=== PATIENT | female | born 1965 | race Caucasian/White ===

== ENCOUNTER → 2017-09-12 | Outpatient (CLI) | payer MEDICAID ==
--- NOTE | 2017-09-13 14:15 | MM ---
Reason for exam: screening (asymptomatic). Last mammogram was performed 1 year and 6 months ago. History: Patient is postmenopausal. Family history of premenopausal breast cancer in mother at age 36. Physical Findings: A clinical breast exam by your physician is recommended on an annual basis and results should be correlated with mammographic findings. MG Screening Mammo w CAD Bilateral CC and MLO view(s) were taken. Prior study comparison: March 08, 2016, right breast MG work up mamm w CAD RT. March 03, 2016, bilateral MG screening mammo w CAD. There are scattered fibroglandular densities. Finding: There is a high density, indistinct irregular mass in the inner quadrant, anterior position of the left breast consistent with possible summation density seen on CC view, 9cm from the nipple. New finding since March 08, 2016 and March 03, 2016. ASSESSMENT: Incomplete: need additional imaging evaluation, BI-RAD 0 RECOMMENDATION: Special view mammogram of the left breast. If lesion persists on supplemental views, image directed ultrasound is recommended. [facility] will attempt to contact patient to return for supplemental views and ultrasound if indicated.
== END | disposition home or self-care (01) ==
LOC: RADMAMWWP 10:06
PROVIDERS: ATTEND Family Medicine
DX: Z12.31 Encounter for screening mammogram for malignant neoplasm of breast (principal)

== ENCOUNTER → 2017-09-25 | Outpatient (CLI) | payer MEDICAID ==
--- NOTE | 2017-09-25 10:19 | MM ---
Reason for exam: additional evaluation requested from abnormal screening. Last mammogram was performed less than 1 month ago. History: Patient is postmenopausal. Family history of premenopausal breast cancer in mother at age 36. Physical Findings: Nurse did not find any significant physical abnormalities on exam. MG Work Up Mamm w CAD LT Spot compression CC view(s) were taken of the left breast. Prior study comparison: September 12, 2017, bilateral MG screening mammo w CAD. March 08, 2016, right breast MG work up mamm w CAD RT. There is no discrete abnormality including area of concern. These results were verbally communicated with the patient and result sheet given to the patient on 09/25/17. ASSESSMENT: Negative, BI-RAD 1 RECOMMENDATION: Return to routine screening mammogram schedule for both breasts.
== END | disposition home or self-care (01) ==
LOC: RADMAMWWP 09:34
PROVIDERS: ATTEND Family Medicine
DX: R92.8 Other abnormal and inconclusive findings on diagnostic imaging of breast (principal)

== ENCOUNTER → 2017-12-14 | Outpatient (CLI) | payer BC ==
[2017-12-14 16:58] LABS: Vitamin D 25 Hydroxy 17.6 ng/mL (30.0-100.0)
--- NOTE | 2017-12-16 22:00 | MR ---
EXAMINATION TYPE: MR brain/cspine wo/w DATE OF EXAM: 12/14/2017 COMPARISON: NONE HISTORY: 52-year-old female Spondylosis, left side weakness, stiffness and pain TECHNIQUE: Multiplanar, multisequence images of the brain and brainstem were acquired before and aft er administration of 12 mL IV Gadavist. Diffusion weighted imaging is performed. Subsequent multiplanar, multisequence images of the cervical spine without and with contrast. FINDINGS: BRAIN: No evidence for acute infarction, hemorrhage, mass, mass effect, midline shift, herniation, effacemen t of basal cisterns, or extra-axial fluid collection. The ventricles and sulci are age-appropriate. Major intracranial flow voids are intact. T2/FLAIR weighted sequences show no significant white matter signal abnormality. Midline structures demonstrate normal morphology. The craniocervical junction is normal. Post contrast images demonstrate no evidence of pathologic enhancement. Dural venous sinuses are pat ent. Mild mucosal thickening left ethmoid air cells and bilateral frontal sinuses. Globes are intact. CERVICAL SPINE: No craniocervical junction abnormality, predental space widening, or prevertebral soft tissue swellin g. Preserved alignment of the cervical spine. Mild heterogeneous marrow signal without suspicious bone marrow replacement. Variable mild to moderate intervertebral disc desiccation. Disc osteophyte complexes are present at m ultiple levels especially from C3 through C7 levels. Corresponding ligamentum flavum thickening in scattered facet and uncovertebral joint degenerative ch viktoriya. At C2-C3, small posterior disc protrusion with facet degenerative change. No significant spinal canal or neuroforaminal stenosis. At C3-C4, there is broad-based lobulated disc osteophyte complex, right greater than left with contig uous uncovertebral joint degenerative change. Bilateral facet arthropathy is present. There is an enh ancing right paracentral annular fissure. Changes result in moderate right and mild left neuroforamin al stenosis. There is mild overall spinal canal stenosis with prominent abutment and flattening of th e ventral cord. At C4-C5, broad-based disc osteophyte complex with contiguous uncovertebral joint arthropathy of the right. Bilateral facet degenerative changes present. Changes of moderate right and mild left neuroforaminal stenosis and with mild overall spinal canal na rrowing. There is abutment and slight flattening of the ventral cord. At C5-C6, there is broad-based disc osteophyte complex with contiguous uncovertebral joint and facet arthropathy. Ligamentum flavum thickening is present as well. Changes result in moderate to severe le ft greater than right neuroforaminal stenosis and mild spinal canal stenosis with abutment and flatte niko of the ventral cord. At C6/C7, broad-based disc osteophyte complex with facet and uncovertebral joint degenerative change as well as ligamentum flavum thickening. Changes resulting in [id number] left and mild right ne uroforaminal stenosis and mild overall spinal canal stenosis. No significant cord flattening. At C7-T1, there is facet degenerative change without canal or foraminal stenosis. No prevertebral or paravertebral soft tissue abnormality seen. No T2-weighted cord signal abnormality identified. No abnormal enhancement within the spinal canal. COMBINED IMPRESSION: BRAIN: 1. No specific intracranial abnormality seen.. CERVICAL SPINE: 1. Nckj-ey-gkhrikbn multilevel degenerative disc disease characterized by disc desiccation and disc o steophyte complex formation. 2. Additional scattered facet and uncovertebral joint arthropathy as well as ligamentum flavum thicke niko. 3. Prominent right paracentral disc osteophyte complex at C3-C4 demonstrates an enhancing annular fis sure. There is abutment and flattening of the ventral cord with mild spinal canal stenosis. Moderate right neural foraminal stenosis here. 4. Additional mild spinal canal stenoses at C4 through C7 levels. Variable mild to moderate neurofora waldemar stenoses as outlined above, moderate to severe left greater than right at C5-C6.
== END | disposition home or self-care (01) ==
LOC: RADMRIMAIN 11:26
PROVIDERS: ATTEND Psychiatry & Neurology Neurology
DX: M48.02 Spinal stenosis, cervical region (principal); M99.71 Connective tissue and disc stenosis of intervertebral foramina of cervical region; M50.30 Other cervical disc degeneration, unspecified cervical region; M46.92 Unspecified inflammatory spondylopathy, cervical region; M24.28 Disorder of ligament, vertebrae; M79.7 Fibromyalgia; R53.1 Weakness; R20.2 Paresthesia of skin
CPT/HCPCS: 82607; 82310; 82306; 70553; 72156; 36415; A9581

== ENCOUNTER → 2018-07-26 | Outpatient (CLI) | payer BC ==
--- NOTE | 2018-07-26 11:27 | FL ---
Modified barium swallow. HISTORY: Dysphagia. Modified barium swallow was performed with the department of speech pathology. The patient was prese nted with various consistencies of barium. There is no evidence for aspiration or penetration. Full report is to follow from the department of speech pathology. Impression: Normal study.
== END ==
LOC: RADFLMAIN 10:36
PROVIDERS: ATTEND Otolaryngology
DX: R13.10 Dysphagia, unspecified (principal)
CPT/HCPCS: 74230

== ENCOUNTER → 2019-03-27 | Outpatient (CLI) | payer MEDICARE ==
--- NOTE | 2019-03-28 11:55 | MM ---
Reason for exam: screening (asymptomatic). Last mammogram was performed 1 year and 6 months ago. History: Patient is postmenopausal. Family history of premenopausal breast cancer in mother at age 36. Physical Findings: A clinical breast exam by your physician is recommended on an annual basis and results should be correlated with mammographic findings. MG 3D Screening Mammo W/Cad Bilateral CC and MLO view(s) were taken. XCCL view(s) were taken of the left breast. Prior study comparison: September 25, 2017, left breast MG work up mamm w CAD LT. September 12, 2017, bilateral MG screening mammo w CAD. The breast tissue is heterogeneously dense. This may lower the sensitivity of mammography. There is no discrete abnormality. ASSESSMENT: Negative, BI-RAD 1 RECOMMENDATION: Routine screening mammogram of both breasts in 1 year.
== END | disposition home or self-care (01) ==
LOC: RADMAMWWP 14:03
PROVIDERS: ATTEND Family Medicine
DX: Z12.31 Encounter for screening mammogram for malignant neoplasm of breast (principal)
CPT/HCPCS: 77063; 77067

== ENCOUNTER → 2019-12-03 | Outpatient (CLI) | payer MEDICARE ==
--- NOTE | 2019-12-03 09:58 | XR ---
EXAMINATION TYPE: XR foot complete LT DATE OF EXAM: 12/03/2019 CLINICAL HISTORY: pain TECHNIQUE: Frontal, lateral and oblique images of the left foot are obtained. COMPARISON: None. FINDINGS: Small corner fracture at the medial base of the proximal phalanx left great toe with intra- articular extension. No significant displacement noted. No additional fracture seen. The joint spaces appear within normal limits. The overlying soft tissue appears unremarkable. IMPRESSION: Small corner fracture at the medial base of the proximal phalanx left great toe with intra-articular extension. No significant displacement noted. ICD 10 closed FRACTURE, INITIAL EVALUATION
== END | disposition home or self-care (01) ==
LOC: RADXRMAIN 09:36
PROVIDERS: ATTEND Family Medicine
DX: S92.412A Displaced fracture of proximal phalanx of left great toe, initial encounter for closed fracture (principal)

== ENCOUNTER → 2020-01-07 | Outpatient (CLI) | payer MEDICARE ==
--- NOTE | 2020-01-08 10:09 | BD ---
EXAMINATION TYPE: Axial Bone Density DATE OF EXAM: 01/07/2020 COMPARISON: 03/07/2011 CLINICAL HISTORY: Z 13.820 Height: 65.7 IN Weight: 282 LBS FRAX RISK QUESTIONS: Family History (Parent hip fracture): YES MOTHER History of Fracture in Adulthood: TOE FX AGE 56 Secondary Osteoporosis: 3. Menopause before 45: YES TOTAL HYST AGE 35 RISK FACTORS HISTORY OF: Family History of Osteoporosis: YES MOTHER AND (M) GRANDMOTHER Active: LIMITED Postmenopausal woman: TOTAL HYST AGE 35 MEDICATIONS: Thyroid Medications: YES Which medication: Levothyroxine How Lon+ YEARS Additional Medications: VIT D, LEVOTHYROXINE, PAIN MEDS, MUSCLE RELAXER, EXAM MEASUREMENTS: Bone mineral densitometry was performed using the [employer] System. Bone mineral density as measured about the Lumbar spine is: ----- L1-L4(G/cm2): 1.032 T Score Values are as follows: ----- L2: -1.2 ----- L3: -1.7 ----- L4: -1.1 ----- L1-L4: -1.2 Bone mineral density has: Decreased -0.6% since study of: 03/07/2011 Bone mineral density about the R hip (g/cm2): 0.898 Bone mineral density about the L hip (g/cm2): 0.910 T Score values are as follows: -----R Neck: -1.0 -----L Neck: -0.9 -----R Total: -0.2 -----L Total: -0.5 Bone mineral density has: Decreased -6.1% since study of: 03/07/2011 IMPRESSION: Osteopenia (T Score between -2.5 and -1). There is slightly increased risk of fracture and the patient may be considered for treatment. Re-Screen 2-5 years. NOTE: T-SCORE=SD OF THE YOUNG ADULT MEAN.
== END | disposition home or self-care (01) ==
LOC: RADBDWWP 15:56
PROVIDERS: ATTEND Family Medicine
DX: Z13.820 Encounter for screening for osteoporosis (principal); M85.80 Other specified disorders of bone density and structure, unspecified site
CPT/HCPCS: 77080

== ENCOUNTER → 2021-05-18 | Outpatient (CLI) | payer MEDICARE ==
[2021-05-18 16:13] LABS: HCT 41.6 % (34.0-46.0); HGB 12.9 gm/dL (11.4-16.0); Hypochromasia Slight; MCH 30.6 pg (25.0-35.0); Macrocytosis Slight; Mean Platelet Volume 7.5; Platelet Count 355 k/uL (150-450); RBC 4.21 m/uL (3.80-5.40); RDW 15.7 % (11.5-15.5); WBC 8.3 k/uL (3.8-10.6)
[2021-05-18 16:16] LABS: Appearance,Urine Cloudy (Clear); Bilirubin,Urine Negative (Negative); Blood,Urine Large (Negative); Color,Urine Yellow; Glucose,Urine (UA) Negative (Negative); Ketones,Urine Negative (Negative); Leukocyte Esterase,Urine Trace (Negative); Mucus,Urine Rare /hpf; Nitrite,Urine Negative (Negative); Protein,Urine 1+ (Negative); RBC,Urine >182 /hpf (0-5); Specific Gravity,Urine 1.027 (1.001-1.035); Squamous Epithelial Cell,Urine 2 /hpf (0-4); Urobilinogen,Urine <2.0 mg/dL (<2.0); WBC,Urine 2 /hpf (0-5)
[2021-05-18 16:22] LABS: INR 0.9 (<1.2); Partial Thromboplastin Time 25.2 sec (22.0-30.0); Prothrombin Time 10.2 sec (9.0-12.0)
[2021-05-18 16:24] LABS: Albumin 4.4 g/dL (3.5-5.0); Calcium 9.6 mg/dL (8.4-10.2); Potassium 4.1 mmol/L (3.5-5.1); Total Bilirubin 0.2 mg/dL (0.2-1.3); Total Protein 6.9 g/dL (6.3-8.2)
== END | disposition home or self-care (01) ==
LOC: LABPAT 13:23
PROVIDERS: ATTEND Orthopaedic Surgery
DX: Z01.812 Encounter for preprocedural laboratory examination (principal)
CPT/HCPCS: 80053; 81001; 85027; 85610; 85730; 87070

== ENCOUNTER → 2021-05-23 | Outpatient (CLI) | payer MEDICARE ==
--- NOTE | 2021-05-26 15:25 | MM ---
Reason for exam: screening (asymptomatic). Last mammogram was performed 2 years and 2 months ago. History: Patient is postmenopausal. Family history of premenopausal breast cancer in mother at age 36. Physical Findings: A clinical breast exam by your physician is recommended on an annual basis and results should be correlated with mammographic findings. MG 3D Screening Mammo W/Cad Bilateral CC and MLO view(s) were taken. Prior study comparison: March 27, 2019, bilateral MG 3d screening mammo w/cad. September 25, 2017, left breast MG work up mamm w CAD LT. There are scattered fibroglandular densities. There is no discrete abnormality. No significant changes when compared with prior studies. ASSESSMENT: Benign, BI-RAD 2 RECOMMENDATION: Routine screening mammogram of both breasts in 1 year.
== END | disposition home or self-care (01) ==
LOC: RADMAMWWP 15:39
PROVIDERS: ATTEND Family Medicine
DX: Z12.31 Encounter for screening mammogram for malignant neoplasm of breast (principal); Z78.0 Asymptomatic menopausal state; Z80.3 Family history of malignant neoplasm of breast
CPT/HCPCS: 77063; 77067

== ENCOUNTER 2021-06-06 12:14 | Day surgery (SDC) | payer MEDICARE ==
[2021-05-31 16:06] VITALS: BMI 46.6
[~2021-06-06 12:14] MED LIST: ACETAMINOPHEN TAB 500 MG TAB PO PRN; GABAPENTIN 300 MG CAP PO PRN; LIDOCAINE 1% (10MG/ML) FOR IV START INTRADERMA PRN; MELOXICAM 7.5 MG TAB PO PRN; MIDAZOLAM 2 MG/2 ML VIAL IV PRN; ROPIVACAINE/EPI/CLONIDINE/KET 50 ML SYRINGE MISCELLANE PRN; TRANEXAMIC ACID 1,000 MG in SODIUM CHLORIDE 0.9% 100 ML IVPB PRN; ceFAZolin 3 GM in SODIUM CHLORIDE 0.9% 100 ML IVPB PRN
[2021-06-06] MEDS: LACTATED RINGERS 1,000 ML IV SCH (12:53)
[2021-06-06] MEDS: DEXAMETHASONE SOD PHOSPHATE 4 MG/ML 1 ML VIAL IV ONE ×2 (12:54→20:53)
[2021-06-06] MEDS: ONDANSETRON 4 MG/2 ML VIAL IVP ONE ×2 (12:55→20:53)
[2021-06-06] MEDS ORDERED: SCOPOLAMINE 1.5MG/72HR PATCH TRANSDERM ONE (12:56)
[2021-06-06] MEDS ORDERED: ROPIVACAINE 0.2%-NS ON-Q PUMP 1,090 MG, EMPTY PAIN BALL 1 EACH MISCELLANE PRN (13:57)
--- NOTE | 2021-06-06 14:00 | P.ANPRN ---
Procedure Note - Anesthesia - Nerve Block Performed Left Adductor Canal Infusion Time Out Performed: Yes (1302) Date of Procedure: 06/06/21 Procedure Start Time: 13:02 Procedure Stop Time: 13:13 Location of Patient: PreOp Indication: Acute Post-Operative Pain, Dx/Pain Location (Left Knee), Requested by Surgeon Specifically requested for management of pain by DrDominga: Vargas Padilla Sedation Type: Sedate with meaningful contact maintained Preparation: Sterile Prep, Sterile Dressing Position: Supine Catheter: Indwelling Needle Types: Pajunk Needle Gauge: 18 Ultrasound used to visualize needle placement: Yes Ultrasound used to observe medication spread: Yes Injectate: 0.5% Ropivacaine (see comment for volume) (20 cc) Blood Aspirated: No Pain Paresthesia on Injection Noted: No Resistance on Injection: Normal Image Stored and Saved: Yes Events: Uneventful and Well Tolerated Left iPack Single Time Out Performed: Yes Date of Procedure: 06/06/21 Location of Patient: PreOp Indication: Acute Post-Operative Pain, Dx/Pain Location (Left Knee) Specifically requested for management of pain by DrDominga: Jose Devlin Sedation Type: Sedate with meaningful contact maintained Preparation: Sterile Prep Position: Right Lateral Catheter: None Needle Types: Pajunk Needle Gauge: 21 Ultrasound used to visualize needle placement: Yes Ultrasound used to observe medication spread: Yes Injectate: 0.5% Ropivacaine (see comment for volume) (20 cc) Blood Aspirated: No Pain Paresthesia on Injection Noted: No Resistance on Injection: Normal Image Stored and Saved: Yes Events: Uneventful and Well Tolerated
[2021-06-06] MEDS ORDERED: diphenhydrAMINE 50 MG/ML 1 ML VIAL ONE (14:36)
[2021-06-06] MEDS ORDERED: MIDAZOLAM 2 MG/2 ML VIAL ONE (14:36)
[2021-06-06] MEDS ORDERED: ROPIVACAINE 5 MG/ML 30 ML VIAL ONE (14:36)
[2021-06-06] MEDS ORDERED: fentaNYL (PF) 50 MCG/ML 2 ML AMP ONE (14:36)
[2021-06-06] MEDS ORDERED: ceFAZolin 1,000 MG in SODIUM CHLORIDE 0.9% 1,000 ML IRRIGATION ONE (14:41)
[2021-06-06] MEDS ORDERED: HYDROmorphone 0.2 MG/1 ML SYRINGE IVP PRN (14:48)
[2021-06-06] MEDS ORDERED: HYDROmorphone 0.5 MG/0.5 ML SYRINGE IVP PRN (14:48)
[2021-06-06] MEDS ORDERED: hydrOXYzine pamoate 25 MG CAP PO PRN (14:48)
[2021-06-06] MEDS ORDERED: MAGNESIUM HYDROXIDE 2,400 MG/10 ML CUP PO PRN (14:48)
[2021-06-06] MEDS ORDERED: HYDROmorphone 1 MG/ML 1 ML SYRINGE IVP PRN (14:48)
[2021-06-06] MEDS ORDERED: NALOXONE 0.4 MG/ML 1 ML VIAL IV PRN (14:48)
[2021-06-06] MEDS ORDERED: NA PHOS,M-B/NA PHOS,DI-BA 133 ML ENEMA RECTAL PRN (14:48)
[2021-06-06] MEDS ORDERED: ONDANSETRON 4 MG/2 ML VIAL IVP PRN (14:48)
[2021-06-06] MEDS ORDERED: bisacodyL 10 MG SUPP RECTAL PRN (14:48)
[2021-06-06] MEDS ORDERED: HYDROcodone/APAP 7.5-325MG 1 EACH TAB PO PRN ×2 (14:50)
--- NOTE | 2021-06-06 15:58 | P.OP ---
Date of Procedure: 06/06/21 Preoperative Diagnosis: Severe osteoarthritis left knee Postoperative Diagnosis: Severe osteoarthritis left knee Procedure(s) Performed: Left total knee arthroplasty Implants: [employer] II CR Oxinium cruciate retaining femoral component size 7, left [employer] nonporous tibial baseplate size 5, left [employer] II, XLPE Deep Dished articular insert, size 9 mm, Size 5- 6, left [employer] Mago II resurfacing patellar component, oval, 32 mm All components were cemented using Palacos R bone cement The articulation is Oxinium on polyethylene Anesthesia: spinal Surgeon: Vargas Padilla [employer] Education Kindergarten Teacher #1: Lisa Bhakta Estimated Blood Loss (ml): 50 Pathology: other (Bone and cartilage) Condition: stable Disposition: PACU Indications for Procedure: After failure of conservative treatment we discussed the surgical and nonsurgical treatment options at length. Patient wishes to proceed with a total knee arthroplasty. Complications specific to this procedure were discussed at length, including but not limited to infection, bleeding, stiffness, and nerve injury. Covid-19 was also discussed at length with the patient, and they are aware of the current policies and procedures. The patient was given the option of delaying surgery, but they elect to proceed knowing these risks. Patient is aware of all these complications and informed consent was obtained Operative Findings: The operative findings are consistent with severe osteoarthritis of the left knee Description of Procedure: Patient was seen in the preoperative area and the consent was reviewed and the operative site was marked with a skin marker. The patient verified the procedure and the operative site. An adductor canal pain catheter was placed and an iPACK block was performed by anesthesia in the preoperative area. The patient was then brought to the operating room and given preoperative antibiotics intravenously. A gram of transexamic acid was given intravenously. A spinal anesthetic was administered by the anesthesia department. A tourniquet was placed on the upper thigh and the lower extremity was prepped with chlorhexi dine and draped in usual sterile fashion. A universal timeout was then performed which confirmed the patient's name, surgical site, ALLERGIES, and consent. The lower extremity was then exsanguinated and tourniquet was inflated to 250 mmHg. A standard anterior midline approach to the knee was performed. The skin and subcutaneous tissue were sharply dissected down to the patellar tendon. A medial parapatellar arthrotomy was then performed. The knee was then extended, the patellar was everted, and the knee was again flexed. The infra-patellar fat pad was removed in order to enhance exposure. The anterior horns of both menisci were excised, and a release was performed to the posterior medial aspect of the knee. On gross visual inspection, there was complete loss of articular cartilage in the medial and patellofemoral joint spaces. There was also significant cartilage damage in the lateral compartment. There were multiple periarticular osteophytes globally about the knee which were then removed with a Ronguer. The femoral canal was then opened with the 9.5 mm intramedullary drill. The 8 mm intramedullary mi was then inserted into the femoral canal with the distal femoral cutting guide set for 5 of valgus. The distal femoral cutting block was then pinned in place. The intramedullary mi was then removed, and the distal femur was then cut. The cutting block was then removed and the cut was checked for symmetry. The resected bone was then measured to confirm the appropriate distal femoral resection. Next, the sizing guide was then placed and set for 3 external rotation based off of the epicondylar axis and Whitesides line. Pins were then placed and the drill holes, and the femur was sized with the sizing stylus. The pins were then removed, and the sizing guide was then removed. The spikes of the femoral block was then placed into the predrilled holes, and malleted into place. Two 45 mm pins were then placed into the fixation holes on the cutting block. An remigio wing was then used to ensure there would be no notching with the anterior cut. The anterior condyles were cut without notching. The anterior chord cut was then performed, followed by the posterior cut, posterior chamfer cut, and the anterior chamfer cut. The collateral ligaments were protected during the entire process. The cutting block was then removed. Any remaining bone and osteophytes were removed from the femur with a Rominger. The femoral canal was plugged with autologous bone. Attention was then directed to the tibia. The remaining ACL was removed with a Ronguer, and the tibia was then gently subluxed forward with a large bent knee retractor. Any remaining menisci were excised. The posterior lateral corner was cauterized in order to coagulate the lateral geniculate artery. The extra medullary tibial cutting guide was then placed, set for the appropriate rotation, slope, and depth of resection. The proximal tibia cutting guide was then pinned in place. Proximal tibia was then cut and sized. The femoral trial was placed. A narrow saw blade was then used to remove the anterior intracondylar femoral bone. The CR notch trial was then placed. The tibial trial was placed with the appropriate-sized insert. The knee was able to fully extend and flex to 130 and was stable throughout all range of motion. The knee was then extended and the patella was everted. Patella was then measured, and then using an osteotomy guide, the patella was cut at the appropriate level. The patella was then measured and drilled and the patella trial was then placed. The knee was then taken through range of motion with the patella trial and the patella tracked normally using the no thumbs technique.. The knee was then extended patella trial was then removed and the patella was everted. Knee was then flexed and lug holes were drilled through the femoral trial and the femoral trial was then removed. The tibial was then re-exposed, and the tibial broach guide was then pinned in place after it was set for the appropriate rotation to allow for the most coverage without overhang. The tibia was then reamed and broached. The cut surfaces of bone were then irrigated with pulsatile lavage. The knee was also irrigated with Irrisept solution. The components were then opened, the cement was mixed, and the components were then cemented in place. The cement was allowed to harden with the knee in full extension. After the cemented hardened. The tourniquet was released, and hemostasis was obtained. A second gram of transexamic acid was given intravenously. The knee was again irrigated. The knee was again taken through range of motion and found to be stable throughout all range of motion of 0-130, and the patella tracked normally. The fascia was then closed with 0 Vicryl followed by #2 strata fix suture. The subcutaneous tissue was closed with 3-0 Vicryl and 3-0 strata fix. Exofin glue was used for the skin and placed with the knee in flexion. After the glue had dried, and Optafoam silver impregnated dressing was applied. The patient was then transferred to recovery room in stable condition. The physiotherapist's assistant MANUEL Astorga was required due the complexity surgery and the need for a skilled surgical instrument mechanic. She assisted in positioning, draping, retraction, and closure of the wound.
[2021-06-06] MEDS ORDERED: LACTATED RINGERS 1,000 ML IV ONE (16:14)
[2021-06-06] MEDS: HYDROmorphone 0.5 MG/0.5 ML SYRINGE IVP PRN ×2 (16:53→17:50)
--- NOTE | 2021-06-06 17:37 | XR ---
EXAMINATION TYPE: XR knee limited LT DATE OF EXAM: 06/06/2021 CLINICAL HISTORY: Left knee pain and arthritis status post total knee replacement. TECHNIQUE: Portable AP and crosstable lateral views of the left knee are obtained immediately postop eratively. COMPARISON: None FINDINGS: Metallic hardware from total left knee arthroplasty is seen and appears satisfactory in al ignment and position. There is evidence of recent surgery with subcutaneous gas. IMPRESSION: METALLIC HARDWARE FROM TOTAL left KNEE ARTHROPLASTY IS SATISFACTORY IN ALIGNMENT.
[2021-06-06] MEDS: SODIUM CHLORIDE 0.9% 1,000 ML IV SCH (20:54)
[2021-06-06] MEDS ORDERED: SENNOSIDES-DOCUSATE SODIUM 1 EACH TAB PO SCH (21:00)
[2021-06-06] MEDS: ASPIRIN 325 MG TAB PO SCH (21:55)
[2021-06-06] MEDS: ceFAZolin 3 GM in SODIUM CHLORIDE 0.9% 100 ML IVPB SCH (22:49)
--- NOTE | 2021-06-06 23:19 | P.CONS ---
History of Present Illness - Reason for Consult Consult date: 06/06/21 Postoperative medical management Requesting physician: Camacho Padilla - Chief Complaint Scheduled left total knee arthroplasty - History of Present Illness 55-year-old female with hypertension hypothyroid fibromyalgia She comes in for scheduled left total knee arthroplasty. Patient tolerated procedure well and eyes any observed immediate postoperative complication denies any chest pain trouble breathing denies any fevers chills she reports that pain is well tolerated and controlled at this time. She tolerated by mouth intake , She hasn't urinated yet. Patient otherwise reports that she is in the status of health denies any fevers chills at home denies any coughing chest pain or trouble breathing denies any changes in her bowel or urinary habits Review of Systems Pertinent positives as noted in HPI. All other systems were reviewed and are negative Past Medical History Past Medical History: Fibromyalgia, GERD/Reflux, Hypertension, Osteoarthritis (OA), Pneumonia, Sleep Apnea/CPAP/BIPAP, Syncope, Thyroid Disorder History of Any Multi-Drug Resistant Organisms: None Reported Past Surgical History: Adenoidectomy, Cholecystectomy, Hysterectomy, Tonsillectomy Past Anesthesia/Blood Transfusion Reactions: No Reported Reaction Past Psychological History: No Psychological Hx Reported Smoking Status: Never smoker Past Alcohol Use History: None Reported Past Drug Use History: None Reported - Past Family History Mother Family Medical History: Cancer Additional Family Medical History / Comment(s): Breast lymph node cancer Medications and Allergies Home Medications Medication Instructions Recorded Confirmed Type Acetaminophen Tab [Tylenol] 650 mg PO Q4H PRN 07/21/14 06/06/21 History Cholecalciferol [Vitamin D3] 2,000 unit PO DAILY@1200 07/21/14 06/06/21 History DULoxetine HCL [Cymbalta] 60 mg PO HS 07/21/14 06/06/21 History Levothyroxine Sodium [Synthroid] 112 mcg PO DAILY 07/21/14 06/06/21 History Biotin 5 mg PO DAILY 05/31/21 06/06/21 History Cyclobenzaprine [Flexeril] 10 mg PO HS 05/31/21 06/06/21 History Gabapentin [Neurontin] 300 mg PO TID 05/31/21 06/06/21 History Ibuprofen [Motrin] 800 mg PO Q8H 05/31/21 06/06/21 History L.acidoph,Paracasei, B.lactis 1 each PO DAILY 05/31/21 06/06/21 History [Probiotic] Lansoprazole [Prevacid] 30 mg PO BID 05/31/21 06/06/21 History Losartan/Hydrochlorothiazide 1 tab PO HS 05/31/21 06/06/21 History [Losartan-Hctz 100-25 mg Tab] Mv-Min/Vit C/Glut/Lysine/Hb124 1 each PO DAILY 05/31/21 06/06/21 History [Immune Support Chewable Tablet] [place]-3 Fatty Acids/Fish Oil [Fish 1 each PO DAILY 05/31/21 06/06/21 History Oil 1,000 mg Softgel] Pulsate Plus 2 tbsp PO DAILY 05/31/21 06/06/21 History Vitamin B Complex 1 each PO DAILY 05/31/21 06/06/21 History Aspirin 325 mg PO BID #60 tab 06/06/21 Rx Celecoxib [CeleBREX] 200 mg PO DAILY 5 Days #5 capsule 06/06/21 Rx HYDROcodone/APAP 7.5-325MG [[place] 1 - 2 tab PO Q6H PRN #32 tab 06/06/21 Rx 7.5-325] Ondansetron [Zofran ODT] 4 mg PO Q8HR PRN #10 tab 06/06/21 Rx Sennosides [Senokot] 2 tab PO DAILY PRN #60 tablet 06/06/21 Rx Allergies Allergy/AdvReac Type Severity Reaction Status Date / Time codeine Allergy Unknown Verified 06/06/21 12:30 oxycodone HCl [From Percocet] Allergy Unknown Verified 06/06/21 12:30 propoxyphene napsylate Allergy Unknown Verified 06/06/21 12:30 [From Darvocet-N] Sulfa (Sulfonamide Allergy Unknown Verified 06/06/21 12:30 Antibiotics) Physical Exam Vitals: Vital Signs Temp Pulse Pulse Pulse Resp BP BP 06/06/21 19:24 89 130/76 06/06/21 19:07 93 122/79 06/06/21 18:54 90 122/80 06/06/21 18:44 98.4 F 99 17 153/81 06/06/21 18:13 80 16 136/77 06/06/21 17:45 85 16 149/86 06/06/21 17:12 78 16 145/75 06/06/21 16:57 68 16 155/72 06/06/21 16:42 70 16 117/73 06/06/21 16:27 97.0 F L 74 12 107/67 06/06/21 13:27 84 20 133/72 06/06/21 12:37 97.4 F L 104 H 20 128/76 Pulse Ox 06/06/21 19:24 93 L 06/06/21 19:07 94 L 06/06/21 18:54 94 L 06/06/21 18:44 95 06/06/21 18:13 97 06/06/21 17:45 95 06/06/21 17:12 99 06/06/21 16:57 100 06/06/21 16:42 100 06/06/21 16:27 97 06/06/21 13:27 95 06/06/21 12:37 96 Intake and Output 06/06/21 06/06/21 06/07/21 14:59 22:59 06:59 Intake Total 1101 200 Output Total 50 Balance 1101 150 Intake: IV 1101 200 Output: Estimated Blood Loss 50 Other: Weight 131.6 kg 131.6 kg Constitutional: No acute distress, conversant, pleasant Eyes: Anicteric sclerae, moist conjunctiva, Pupils equal round reactive to light ENMT: NC/AT Oropharynx clear, no erythema, or exudates Neck: Supple, FROM, no masses, or JVD No carotid bruits No thyromegaly Lungs: Clear to auscultation Clear to percussion Normal respiratory effort, no accessory muscle use Cardiovascular: Heart regular in rate and rhythm, No murmurs, gallops, or rubs No peripheral edema Abdominal: Soft Nontender, no guarding, rebound or rigidity Abdomen moving with respiration Normoactive bowel sounds No hepatomegaly, No splenomegaly No palpable mass No abdominal wall hernia noted Skin: Normal temperature, tone, texture, turgor No induration No subcutaneous nodules No rash, lesions No ulcers Extremities: No digital cyanosis No clubbing Pedal pulses intact and symmetrical Radial pulses intact and symmetrical No calf tenderness Psychiatric: Alert and oriented to person, place and time Appropriate affect fair judgement Neuro Muscles Strength 5/5 in bilateral upper extremity and right lower extremity, , limited exam over left lower extremity due to recent surgery Sensation to light touch grossly present throughout Cranial nerves II-XII grossly intact No focal sensory deficits Lymphatics: no palpable cervical or supraclavicular , or inguinal lymph nodes Assessment and Plan Assessment: Left total knee replacement postoperative day 0 Pain management and DVT prophylaxis per orthopedic team Dictation controlled resume hydrochlorothiazide For thyroid resume levothyroxine fibromyalgia Pain control Follow-up labs in the morning CBC and BMP Thank you for allowing us to participate in the care of this patient. Do not hesitate to contact us with questions. Someone can be reached from the [facility] hospitalist group at all hours of the day at [phone].
[2021-06-07] MEDS: SODIUM CHLORIDE 0.9% 1,000 ML IV SCH (06:00)
[2021-06-07] MEDS: LACTATED RINGERS 1,000 ML IV SCH ×2 (06:00→06:03)
--- NOTE | 2021-06-07 07:05 | P.PN ---
Progress Note - Text Postoperative day # 1 status post total knee arthroplasty, on adductor canal perineural catheter placed for postoperative analgesia. Ropivacaine 0.2% 8 mL per hour through ON-Q pump continuous infusion. Pain is well controlled. On visual analog scale 0-1/10 Patient is taking PRN oral pain medications. Catheter site: Looks Ok. There is no erythema or tenderness. Continue with the current pain management plan and will follow.
[2021-06-07 08:10] VITALS: BP 119/73; PULSE 100; RESP 18; TEMP 97.5
[2021-06-07] MEDS: ceFAZolin 3 GM in SODIUM CHLORIDE 0.9% 100 ML IVPB SCH (08:26)
[2021-06-07] MEDS: ASPIRIN 325 MG TAB PO SCH (08:27)
[2021-06-07] MEDS ORDERED: LEVOTHYROXINE 112 MCG TAB PO SCH (09:00)
[2021-06-07] MEDS ORDERED: PANTOPRAZOLE 40 MG TABLET PO SCH (09:00)
[2021-06-07] MEDS ORDERED: NON FORMULARY DRUG (Omega-3 Fatty Acids/Fish Oil [Fish Oil 1,000 Mg Softgel] 1 EACH Capsul PO SCH (09:00)
[2021-06-07] MEDS ORDERED: MULTIVITAMINS, THERA 1 EACH TAB PO SCH (09:00)
[2021-06-07] MEDS ORDERED: LACTOBACILLUS ACIDOPH & BULGAR 1 EACH PACKET PO SCH (09:00)
[2021-06-07] MEDS ORDERED: GABAPENTIN 300 MG CAP PO SCH (09:00)
--- NOTE | 2021-06-07 09:16 | P.DS ---
Providers Expected date of discharge: 06/07/21 Attending physician: Vargas Padlila Consults: 06/06/21 14:48 Consult Physician Routine Consulting Provider: Lauren Larson Consult Reason/Comments: medical management Do you want consulting provider notified?: Yes Primary care physician: Jeffrey Appiah - Discharge Diagnosis(es) (1) Osteoarthritis of left knee Current Visit: Yes Status: Acute (2) Status post total left knee replacement Current Visit: Yes Status: Acute Hospital Course: This is a 55-year-old female with known history of degenerative arthritis of the left knee. The patient presented for evaluation as an outpatient. After discussion and consideration patient elects to proceed with total knee arthroplasty. The patient is seen preoperatively by Dr. Padilla and medically cleared for surgery by their primary care physician. Patient is admitted to [facility] on 06/06/2021 for total knee arthroplasty. The procedure is performed without complication or sequelae. The patient is doing well postoperatively. Labs and vital signs are stable on day of discharge. On day of discharge patient's knee incision is healing well. There is minimal erythema. There is no drainage noted at this time. There is minimal soft ti ssue swelling to the knee. Patient has full foot and ankle motion without difficulty or pain. Calf is soft and nontender to palpation. Neurovascular status to the left lower extremity is intact. Patient is discharged home in good condition. Opioid start talking form is reviewed and signed. Please see med rec for accurate list of home medications. Plan - Discharge Summary Discharge Rx Participant: No New Discharge Prescriptions: New HYDROcodone/APAP 7.5-325MG [[place] 7.5-325] 1 - 2 tab PO Q6H PRN #32 tab PRN Reason: Pain Sennosides [Senokot] 2 tab PO DAILY PRN #60 tablet PRN Reason: Constipation Aspirin 325 mg PO BID #60 tab Celecoxib [CeleBREX] 200 mg PO DAILY 5 Days #5 capsule Ondansetron [Zofran ODT] 4 mg PO Q8HR PRN #10 tab PRN Reason: Nausea And Vomiting No Action DULoxetine HCL [Cymbalta] 60 mg PO HS Acetaminophen Tab [Tylenol] 650 mg PO Q4H PRN PRN Reason: Pain Cholecalciferol [Vitamin D3] 2,000 unit PO DAILY@1200 Levothyroxine Sodium [Synthroid] 112 mcg PO DAILY Biotin 5 mg PO DAILY [place]-3 Fatty Acids/Fish Oil [Fish Oil 1,000 mg Softgel] 1 each PO DAILY Lansoprazole [Prevacid] 30 mg PO BID Ibuprofen [Motrin] 800 mg PO Q8H Cyclobenzaprine [Flexeril] 10 mg PO HS L.acidoph,Paracasei, B.lactis [Probiotic] 1 each PO DAILY Vitamin B Complex 1 each PO DAILY Mv-Min/Vit C/Glut/Lysine/Hb124 [Immune Support Chewable Tablet] 1 each PO DAILY Losartan/Hydrochlorothiazide [Losartan-Hctz 100-25 mg Tab] 1 tab PO HS Gabapentin [Neurontin] 300 mg PO TID Pulsate Plus 2 tbsp PO DAILY Discharge Medication List Acetaminophen Tab [Tylenol] 650 mg PO Q4H PRN 07/21/14 [History] Cholecalciferol [Vitamin D3] 2,000 unit PO DAILY@1200 07/21/14 [History] DULoxetine HCL [Cymbalta] 60 mg PO HS 07/21/14 [History] Levothyroxine Sodium [Synthroid] 112 mcg PO DAILY 07/21/14 [History] Biotin 5 mg PO DAILY 05/31/21 [History] Cyclobenzaprine [Flexeril] 10 mg PO HS 05/31/21 [History] Gabapentin [Neurontin] 300 mg PO TID 05/31/21 [History] Ibuprofen [Motrin] 800 mg PO Q8H 05/31/21 [History] L.acidoph,Paracasei, B.lactis [Probiotic] 1 each PO DAILY 05/31/21 [History] Lansoprazole [Prevacid] 30 mg PO BID 05/31/21 [History] Losartan/Hydrochlorothiazide [Losartan-Hctz 100-25 mg Tab] 1 tab PO HS 05/31/21 [History] Mv-Min/Vit C/Glut/Lysine/Hb124 [Immune Support Chewable Tablet] 1 each PO DAILY 05/31/21 [History] [place]-3 Fatty Acids/Fish Oil [Fish Oil 1,000 mg Softgel] 1 each PO DAILY 05/31/21 [History] Pulsate Plus 2 tbsp PO DAILY 05/31/21 [History] Vitamin B Complex 1 each PO DAILY 05/31/21 [History] Aspirin 325 mg PO BID #60 tab 06/06/21 [Rx] Celecoxib [CeleBREX] 200 mg PO DAILY 5 Days #5 capsule 06/06/21 [Rx] HYDROcodone/APAP 7.5-325MG [[place] 7.5-325] 1 - 2 tab PO Q6H PRN #32 tab 06/06/21 [Rx] Ondansetron [Zofran ODT] 4 mg PO Q8HR PRN #10 tab 06/06/21 [Rx] Sennosides [Senokot] 2 tab PO DAILY PRN #60 tablet 06/06/21 [Rx] Follow up Appointment(s)/Referral(s): Vargas Padilla DO [Doctor of Osteopathic Medicine] - 2 Weeks Ambulatory/Diagnostic Orders: Continuous Passive Motion (CPM) Machine [DME.AMB1] Time Frame: 3 Weeks, Location: None Selected Patient Instructions/Handouts: *Surgery [facility] - Scopalamine Patch Instructions Activity/Diet/Wound Care/Special Instructions: Weightbearing as tolerated with a walker. CPM 5-6h daily as tolerated. Leave dressing intact. Dressing may be removed by home care nurse or by patient in 7 days. Then change dressing twice daily until follow up. May shower with initial dressing intact and after removal. If dressing become saturated, please remove. Recommend use of compression stockings daily until follow up to help prevent swelling and blood clots. May remove at night before sleeping. Please take aspirin 325mg twice daily for 30 days to prevent blood clots. Please follow up with [facility] and call with any questions or concerns, . Discharge Disposition: HOME WITH HOME HEALTH SERVICES
[2021-06-07 10:26] LABS: Basophils # (A) 0.02 X 10*3/uL (0.00-0.10); Basophils % (A) 0.2 %; Eosinophils # (A) 0 X 10*3/uL (0.04-0.35); Eosinophils % (A) 0 %; HCT 36.8 % (37.2-46.3); HGB 11.6 g/dL (12.0-15.0); Lymphocytes # (A) 0.95 X 10*3/uL (0.90-5.00); Lymphocytes % (A) 7.5 %; MCH 31.3 pg (27.0-32.0); MCHC 31.5 g/dL (32.0-37.0); MCV 99.2 fL (80.0-97.0); Mean Platelet Volume 11.5 fL (9.5-12.2); Monocytes # (A) 0.94 X 10*3/uL (0.20-1.00); Monocytes % (A) 7.4 %; Neutrophils # (A) 10.69 X 10*3/uL (1.80-7.70); Neutrophils % (A) 84.4 %; Platelet Count 189 X 10*3/uL (140-440); RBC 3.71 X 10*6/uL (4.10-5.20); RDW 14.4 % (11.5-14.5); WBC 12.66 X 10*3/uL (4.50-10.00)
[2021-06-07] MEDS ORDERED: CHOLECALCIFEROL 25 MCG (1000 IU) TABLET PO SCH (12:00)
[2021-06-07 13:05] LABS: African American GFR (CKD) 94.9 (60.0-200.0); Anion Gap 14.1 mmol/L (4.00-12.00); Carbon Dioxide 22.9 mmol/L (21.6-31.8); Non-African American GFR(CKD) 81.8 (60.0-200.0); Potassium 4.4 mmol/L (3.5-5.5)
--- NOTE | 2021-06-07 13:51 | P.PN ---
Subjective Progress Note Date: 06/07/21 Patient was seen and evaluated by me this morning. She was pain-free. She was awaiting physical therapy for evaluation. Objective - Vital Signs Vital signs: Vital Signs Temp 97.5 F L 06/07/21 08:08 Pulse 100 06/07/21 08:08 Resp 18 06/07/21 08:08 BP 119/73 06/07/21 08:08 Pulse Ox 92 L 06/07/21 08:08 Intake & Output 06/06/21 06/07/21 06/07/21 18:59 06:59 18:59 Intake Total 1301 2340 Output Total 50 450 Balance 1251 1890 Weight 131.6 kg Intake: IV 1301 Intake, IV Titration 2100 Amount Lactated Ringers 1,000 ml 1000 @ 0 mls/hr IV .[facility] Rx#:[id number] Sodium Chloride 0.9% 1, 1000 000 ml @ 70 mls/hr IV . [id number] [facility] Rx#:[id number] ceFAZolin 3 gm In Sodium 100 Chloride 0.9% 100 ml @ 200 mls/hr IVPB Q8H [facility] Rx#:[id number] Oral 240 Output: Urine 450 Estimated Blood Loss 50 Other: # Voids 2 - Exam General: The patient is awake and alert, in no distress Eye: there is normal conjunctiva bilaterally. Neck: The neck is supple, there is no JVD. Cardiovascular: Normal S1-S2, no S3-S4, no murmurs. Respiratory: Lungs clear to auscultation bilaterally Gastrointestinal: Abdomen is soft, nontender Musculoskeletal: There is no pedal edema. Neurological:. Speech is normal. Skin: Skin is warm and dry - Labs CBC & Chem 7: 06/07/21 06:07 06/07/21 06:07 Labs: Abnormal Lab Results - Last 24 Hours (Table) 06/07/21 06/07/21 Range/Units 06:07 06:07 WBC 12.66 H (4.50-10.00) X 10*3/uL RBC 3.71 L (4.10-5.20) X 10*6/uL Hgb 11.6 L (12.0-15.0) g/dL Hct 36.8 L (37.2-46.3) % MCV 99.2 H (80.0-97.0) fL MCHC 31.5 L (32.0-37.0) g/dL Immature Gran # 0.06 H (0.00-0.04) X 10*3/uL Neutrophils # 10.69 H (1.80-7.70) X 10*3/uL Eosinophils # 0 L (0.04-0.35) X 10*3/uL Anion Gap 14.10 H (4.00-12.00) mmol/L BUN/Creatinine Ratio 25.00 H (12.00-20.00) Ratio Glucose 151 H (70-110) mg/dL Assessment and Plan Assessment: 1. Postoperative day #1 status post total left knee arthroplasty. Postoperative care, pain control, and DVT prophylaxis per orthopedic protocol 2. Essential hypertension, blood pressure within acceptable range 3. Hypothyroidism on levothyroxine Today, I reviewed her medication list. Discharge planning per primary team. Patient is medically cleared for discharge. Resume home medications as directed.
[2021-06-07] MEDS ORDERED: DULoxetine HCL 60 MG CAPSULE.DR PO SCH (21:00)
[2021-06-07] MEDS ORDERED: LOSARTAN-HCTZ 50-12.5 MG 1 EACH TAB PO SCH (21:00)
== END 2021-06-07 11:19 | disposition home health service (06) ==
LOC: OR 12:14 → 4SSUR 16:20 → OR 06-07 11:19
PROVIDERS: ATTEND Orthopaedic Surgery
DX: M17.12 Unilateral primary osteoarthritis, left knee (principal); M79.7 Fibromyalgia; E03.9 Hypothyroidism, unspecified; R26.81 Unsteadiness on feet; K30 Functional dyspepsia; Z97.3 Presence of spectacles and contact lenses; Z90.89 Acquired absence of other organs; Z98.891 History of uterine scar from previous surgery; Z90.710 Acquired absence of both cervix and uterus; Z86.19 Personal history of other infectious and parasitic diseases; E66.9 Obesity, unspecified; Z68.42 Body mass index [BMI] 45.0-49.9, adult; Z87.01 Personal history of pneumonia (recurrent); G47.30 Sleep apnea, unspecified; Z98.890 Other specified postprocedural states; Z79.1 Long term (current) use of non-steroidal anti-inflammatories (NSAID); Z79.890 Hormone replacement therapy; Z79.899 Other long term (current) drug therapy; Z88.5 Allergy status to narcotic agent; Z88.0 Allergy status to penicillin; Z88.2 Allergy status to sulfonamides
CPT/HCPCS: 97161; 64999; 64448; 76942; 80048; 85025; 73560; 27447; C1713; C1776; J2250; J1200; J1100; J0690 ×3; J2405; J3010; J1170 ×3; J2795 ×2; 88300

== ENCOUNTER → 2021-08-31 | Outpatient (CLI) | payer MEDICARE ==
[2021-08-31 11:40] LABS: Appearance,Urine Cloudy (Clear); Bacteria,Urine Rare /hpf; Bilirubin,Urine Negative (Negative); Blood,Urine Large (Negative); Color,Urine Yellow; Glucose,Urine (UA) Negative (Negative); Ketones,Urine Negative (Negative); Leukocyte Esterase,Urine Moderate (Negative); Mucus,Urine Moderate /hpf; Nitrite,Urine Negative (Negative); Protein,Urine 1+ (Negative); RBC,Urine >182 /hpf (0-5); Specific Gravity,Urine 1.025 (1.001-1.035); Squamous Epithelial Cell,Urine 12 /hpf (0-4); Urobilinogen,Urine <2.0 mg/dL (<2.0); WBC,Urine 13 /hpf (0-5)
[2021-08-31 11:53] LABS: ALT 27 U/L (4-34); AST 27 U/L (14-36); African American GFR (CKD) >90 (>60 ml/min/1.73 sqM); Albumin 3.8 g/dL (3.5-5.0); Alkaline Phosphatase 113 U/L (38-126); Anion Gap 7 mmol/L; Blood Urea Nitrogen 19 mg/dL (7-17); Calcium 9.2 mg/dL (8.4-10.2); Carbon Dioxide 27 mmol/L (22-30); Chloride 105 mmol/L (98-107); Glucose 122 mg/dL (74-99); Non-African American GFR(CKD) 88 (>60 ml/min/1.73 sqM); Potassium 4.4 mmol/L (3.5-5.1); Sodium 139 mmol/L (137-145); Total Bilirubin 0.3 mg/dL (0.2-1.3); Total Protein 6.5 g/dL (6.3-8.2)
[2021-08-31 12:05] LABS: INR 0.9 (<1.2); Partial Thromboplastin Time 25.2 sec (22.0-30.0); Prothrombin Time 10.1 sec (9.0-12.0)
[2021-08-31 12:31] LABS: Basophils % (A) 0 %; Eosinophils # (A) 0.2 k/uL (0-0.7); Eosinophils % (A) 3 %; HCT 38.2 % (34.0-46.0); HGB 12.2 gm/dL (11.4-16.0); Lymphocytes # (A) 1.4 k/uL (1.0-4.8); Lymphocytes % (A) 21 %; MCH 30.4 pg (25.0-35.0); Mean Platelet Volume 7.9; Monocytes # (A) 0.4 k/uL (0-1.0); Monocytes % (A) 6 %; Neutrophils # (A) 4.5 k/uL (1.3-7.7); Neutrophils % (A) 67 %; Platelet Count 295 k/uL (150-450); RBC 4.02 m/uL (3.80-5.40); RDW 15.3 % (11.5-15.5); WBC 6.7 k/uL (3.8-10.6)
== END | disposition home or self-care (01) ==
LOC: LABPAT 10:36
PROVIDERS: ATTEND Orthopaedic Surgery
DX: Z01.818 Encounter for other preprocedural examination (principal); M17.11 Unilateral primary osteoarthritis, right knee
CPT/HCPCS: 80053; 81001; 85025; 85610; 85730; 87070; 93005

== ENCOUNTER 2021-09-20 12:22 | Day surgery (SDC) | payer MEDICARE ==
[2021-09-16 08:44] VITALS: BMI 46.7
[~2021-09-20 12:22] MED LIST changes: -MIDAZOLAM 2 MG/2 ML VIAL IV PRN; +ONDANSETRON 4 MG/2 ML VIAL IVP ONE
[2021-09-20] MEDS: LACTATED RINGERS 1,000 ML IV SCH (12:36)
[2021-09-20] MEDS ORDERED: MIDAZOLAM 2 MG/2 ML VIAL IV ONE (13:37)
[2021-09-20] MEDS: fentaNYL (PF) 50 MCG/ML 2 ML AMP IV PRN ×2 (13:37→17:39)
--- NOTE | 2021-09-20 14:34 | P.ANPRN ---
Procedure Note - Anesthesia - Nerve Block Performed Right Adductor Canal Infusion Time Out Performed: Yes (1325) Date of Procedure: 09/20/21 Procedure Start Time: 13:27 Procedure Stop Time: 13:32 Location of Patient: PreOp Indication: Acute Post-Operative Pain, Requested by Surgeon Specifically requested for management of pain by DrDominga: Vargas Padilla Sedation Type: Sedate with meaningful contact maintained Preparation: Sterile Prep, Sterile Dressing Position: Supine Catheter Depth at Skin (cm): 8 Catheter: Indwelling Needle Types: Pajunk Needle Gauge: Other (see comment) (16) Ultrasound used to visualize needle placement: Yes Ultrasound used to observe medication spread: Yes Injectate: 0.5% Ropivacaine (see comment for volume) (20cc) Blood Aspirated: No Pain Paresthesia on Injection Noted: No Resistance on Injection: Normal Image Stored and Saved: Yes Events: Uneventful and Well Tolerated Right iPack Single Time Out Performed: Yes (1325) Date of Procedure: 09/20/21 Procedure Start Time: 13:33 Procedure Stop Time: 13:37 Location of Patient: PreOp Indication: Acute Post-Operative Pain, Requested by Surgeon Specifically requested for management of pain by DrDominga: Vargas Padilla Sedation Type: Sedate with meaningful contact maintained Preparation: Sterile Prep Position: Supine Catheter: None Needle Types: Pajunk Needle Gauge: 21 Ultrasound used to visualize needle placement: Yes Ultrasound used to observe medication spread: Yes Injectate: 0.5% Ropivacaine (see comment for volume) (20cc) Blood Aspirated: No Pain Paresthesia on Injection Noted: No Resistance on Injection: Normal Image Stored and Saved: Yes Events: Uneventful and Well Tolerated
[2021-09-20] MEDS ORDERED: MIDAZOLAM 2 MG/2 ML VIAL ONE (15:15)
[2021-09-20] MEDS ORDERED: LIDOCAINE 1% INJ 10MG/ML (20 ML MDV) ONE (15:15)
[2021-09-20] MEDS ORDERED: GLYCOPYRROLATE 0.2 MG/ML 2 ML VIAL ONE (15:15)
[2021-09-20] MEDS ORDERED: TRANEXAMIC ACID 1,000 MG/10 ML VIAL ONE (15:15)
[2021-09-20] MEDS ORDERED: HYDROmorphone (PF) 1 MG/ML ONE (15:15)
[2021-09-20] MEDS ORDERED: PROPOFOL 10 MG/ML 20 ML VIAL IV ONE (15:15)
[2021-09-20] MEDS ORDERED: ROPIVACAINE 5 MG/ML 30 ML VIAL ONE (15:15)
[2021-09-20] MEDS ORDERED: ROCURONIUM 10 MG/ML (5 ML VIAL) IV ONE (15:15)
[2021-09-20] MEDS ORDERED: SUCCINYLCHOLINE CHLORIDE 100 MG/5 ML SYR IV ONE (15:15)
[2021-09-20] MEDS ORDERED: NEOSTIGMINE 1 MG/ML 10 ML VIAL ONE (15:15)
[2021-09-20] MEDS ORDERED: SODIUM CHLORIDE 0.9% 100 ML BAG ONE (15:15)
[2021-09-20] MEDS ORDERED: fentaNYL (PF) 50 MCG/ML 2 ML AMP ONE (15:15)
[2021-09-20] MEDS ORDERED: LACTATED RINGERS 1,000 ML IV ONE (16:04)
--- NOTE | 2021-09-20 16:48 | P.OP ---
Date of Procedure: 09/20/21 Preoperative Diagnosis: Severe osteoarthritis right knee Postoperative Diagnosis: Severe osteoarthritis right knee Procedure(s) Performed: Right total knee arthroplasty Implants: [employer] II CR Oxinium cruciate retaining femoral component size 6, right [employer] Journey nonporous tibial baseplate size 5, right [employer] Journey II, XLPE Deep Dished articular insert, size 11 mm, Size 5-6, right [employer] Journey Mago II resurfacing patellar component, oval, 32 mm All components were cemented using [place] R bone cement The articulation is Oxinium on polyethylene Anesthesia: LISSY Surgeon: Vargas Padilla Substance Abuse Counselor #1: Marvin Mendez Estimated Blood Loss (ml): 25 Pathology: other (Bone and cartilage) Condition: stable Disposition: PACU Indications for Procedure: After failure of conservative treatment we discussed the surgical and nonsurgical treatment options at length. Patient wishes to proceed with a total knee arthroplasty. Complications specific to this procedure were discussed at length, including but not limited to infection, bleeding, stiffness, and nerve injury. Covid-19 was also discussed at length with the patient, and they are aware of the current policies and procedures. The patient was given the option of delaying surgery, but they elect to proceed knowing these risks. Patient is aware of all these complications and informed consent was obtained Operative Findings: Operative findings are consistent with severe osteoarthritis of the right knee Description of Procedure: Patient was seen in the preoperative area and the consent was reviewed and the operative site was marked with a skin marker. The patient verified the procedure and the operative site. An adductor canal pain catheter was placed by anesthesia in the preoperative area. The patient was then brought to the operating room and given preoperative antibiotics intravenously. A gram of transexamic acid was given intravenously. A general anesthetic was administered by the anesthesia department. A tourniquet was placed on the upper thigh and the lower extremity was prepped with chlorhexidine and draped in usual sterile fashion. A universal timeout was then performed which confirmed the patient's name, surgical site, ALLERGIES, and consent. The lower extremity was then exsanguinated and tourniquet was inflated to 300 mmHg. A standard anterior midline approach to the knee was performed. The skin and subcutaneous tissue were sharply dissected down to the patellar tendon. A medial parapatellar arthrotomy was then performed. The knee was then extended, the patellar was everted, and the knee was again flexed. The infra-patellar fat pad was removed in order to enhance exposure. The anterior horns of both menisci were excised, and a release was performed to the posterior medial aspect of the knee. On gross visual inspection, there was complete loss of articular cartilage in the medial and patellofemoral joint spaces. There was also significant cartilage damage in the lateral compartment. There were multiple periarticular osteophytes globally about the knee which were then removed with a Ronguer. The femoral canal was then opened with the 9.5 mm intramedullary drill. The 8 mm intramedullary mi was then inserted into the femoral canal with the distal femoral cutting guide set for 5 of valgus. The distal femoral cutting block was then pinned in place. The intramedullary mi was then removed, and the distal femur was then cut. The cutting block was then removed and the cut was checked for symmetry. The resected bone was then measured to confirm the appropriate distal femoral resection. Next, the sizing guide was then placed and set for 3 external rotation based off of the epicondylar axis and [place] line. Pins were then placed and the drill holes, and the femur was sized with the sizing stylus. The pins were then removed, and the sizing guide was then removed. The spikes of the femoral block was then placed into the predrilled holes, and malleted into place. Two 45 mm pins were then placed into the fixation holes on the cutting block. An remigio wing was then used to ensure there would be no notching with the anterior cut. The anterior condyles were cut without notching. The anterior chord cut was then performed, followed by the posterior cut, posterior chamfer cut, and the anterior chamfer cut. The collateral ligaments were protected during the entire process. The cutting block was then removed. Any remaining bone and osteophytes were removed from t he femur with a Rominger. The femoral canal was plugged with autologous bone. Attention was then directed to the tibia. The remaining ACL was removed with a Ronguer, and the tibia was then gently subluxed forward with a large bent knee retractor. Any remaining menisci were excised. The posterior lateral corner was cauterized in order to coagulate the lateral geniculate artery. The extra medullary tibial cutting guide was then placed, set for the appropriate rotation, slope, and depth of resection. The proximal tibia cutting guide was then pinned in place. Proximal tibia was then cut and sized. The femoral trial was placed. A narrow saw blade was then used to remove the anterior intracondylar femoral bone. The CR notch trial was then placed. The tibial trial was placed with the appropriate-sized insert. The knee was able to fully extend and flex to 130 and was stable throughout all range of motion. The knee was then extended and the patella was everted. Patella was then measured, and then using an osteotomy guide, the patella was cut at the appropriate level. The patella was then measured and drilled and the patella trial was then placed. The knee was then taken through range of motion with the patella trial and the patella tracked normally using the no thumbs technique.. The knee was then extended patella trial was then removed and the patella was everted. Knee was then flexed and lug holes were drilled through the femoral trial and the femoral trial was then removed. The tibial was then re-exposed, and the tibial broach guide was then pinned in place after it was set for the appropriate rotation to allow for the most coverage without overhang. The tibia was then reamed and broached. The cut surfaces of bone were then irrigated with pulsatile lavage. The knee was also irrigated with Irrisept solution. The components were then opened, the cement was mixed, and the components were then cemented in place. The cement was allowed to harden with the knee in full extension. After the cemented hardened. The tourniquet was released, and hemostasis was obtained. A second gram of transexamic acid was given intravenously. The knee was again irrigated. The knee was again taken through range of motion and found to be stable throughout all range of motion of 0-130, and the patella tracked normally. The fascia was then closed with 0 Vicryl followed by #2 strata fix suture. The subcutaneous tissue was closed with 3-0 Vicryl and 3-0 strata fix. Exofin glue was used for the skin and placed with the knee in flexion. After the glue had dried, and Optafoam silver impregnated dressing was applied. The patient was then transferred to recovery room in stable condition. The assistant professor of music MANUEL Dinero was required due the complexity surgery and the need for a skilled surgical services director. She assisted in positioning, draping, retraction, and closure of the wound.
[2021-09-20] MEDS ORDERED: ROPIVACAINE 0.2%-NS ON-Q PUMP 1,090 MG, EMPTY PAIN BALL 1 EACH MISCELLANE PRN (17:19)
[2021-09-20] MEDS ORDERED: MAGNESIUM HYDROXIDE 2,400 MG/10 ML CUP PO PRN (17:23)
[2021-09-20] MEDS ORDERED: HYDROcodone/APAP 7.5-325MG 1 EACH TAB PO PRN (17:23)
[2021-09-20] MEDS ORDERED: ONDANSETRON 4 MG/2 ML VIAL IVP PRN (17:23)
[2021-09-20] MEDS ORDERED: HYDROcodone/APAP 5-325MG 1 EACH TAB PO PRN (17:23)
[2021-09-20] MEDS ORDERED: HYDROmorphone 0.2 MG/1 ML SYRINGE IVP PRN (17:23)
[2021-09-20] MEDS ORDERED: NALOXONE 0.4 MG/ML 1 ML VIAL IV PRN (17:23)
[2021-09-20] MEDS ORDERED: HYDROmorphone 0.5 MG/0.5 ML SYRINGE IVP PRN (17:23)
[2021-09-20] MEDS ORDERED: fentaNYL (PF) 50 MCG/ML 2 ML AMP IVP ONE (17:48)
[2021-09-20] MEDS ORDERED: traMADol 50 MG TAB PO PRN (18:30)
--- NOTE | 2021-09-20 19:20 | XR ---
EXAMINATION TYPE: XR knee limited RT DATE OF EXAM: 09/20/2021 COMPARISON: NONE HISTORY: Postop knee surgery TECHNIQUE: 2 views FINDINGS: There is right knee prosthesis. I see no fracture nor dislocation. There is no evidence of knee joint effusion. IMPRESSION: Negative right knee exam.
[2021-09-20] MEDS: HYDROmorphone 1 MG/ML 1 ML SYRINGE IVP PRN (19:30)
[2021-09-20] MEDS ORDERED: SENNOSIDES-DOCUSATE SODIUM 1 EACH TAB PO SCH (21:00)
[2021-09-20] MEDS ORDERED: DULoxetine HCL 60 MG CAPSULE.DR PO SCH (21:00)
[2021-09-20] MEDS: ASPIRIN 325 MG TAB PO SCH (21:59)
[2021-09-20] MEDS: GABAPENTIN 300 MG CAP PO SCH (21:59)
[2021-09-20] MEDS: PANTOPRAZOLE 40 MG TABLET PO SCH (22:02)
[2021-09-20] MEDS: SODIUM CHLORIDE 0.9% 1,000 ML IV SCH (22:57)
[2021-09-20] MEDS: traMADol 50 MG TAB PO PRN (23:15)
[2021-09-20] MEDS: ceFAZolin 3 GM in SODIUM CHLORIDE 0.9% 100 ML IVPB SCH (23:16)
[2021-09-21] MEDS: LACTATED RINGERS 1,000 ML IV SCH (03:41)
[2021-09-21] MEDS: HYDROmorphone 1 MG/ML 1 ML SYRINGE IVP PRN ×2 (03:45→08:41)
[2021-09-21] MEDS: SODIUM CHLORIDE 0.9% 1,000 ML IV SCH ×2 (04:26→11:47)
[2021-09-21] MEDS: traMADol 50 MG TAB PO PRN ×2 (06:10→11:29)
[2021-09-21] MEDS ORDERED: LEVOTHYROXINE 112 MCG TAB PO SCH (06:30)
[2021-09-21 08:35] VITALS: BP 144/82; PULSE 94; RESP 18; TEMP 97.6
[2021-09-21] MEDS: ceFAZolin 3 GM in SODIUM CHLORIDE 0.9% 100 ML IVPB SCH (08:41)
[2021-09-21] MEDS: ASPIRIN 325 MG TAB PO SCH (08:42)
[2021-09-21] MEDS: PANTOPRAZOLE 40 MG TABLET PO SCH (08:43)
[2021-09-21] MEDS: GABAPENTIN 300 MG CAP PO SCH (08:43)
[2021-09-21] MEDS ORDERED: LACTOBACILLUS ACIDOPH & BULGAR 1 EACH PACKET PO SCH (09:00)
[2021-09-21 09:27] LABS: Basophils # (A) 0.03 X 10*3/uL (0.00-0.10); Basophils % (A) 0.2 %; Eosinophils # (A) 0 X 10*3/uL (0.04-0.35); Eosinophils % (A) 0 %; HCT 34.9 % (37.2-46.3); Lymphocytes # (A) 1.03 X 10*3/uL (0.90-5.00); MCH 30.1 pg (27.0-32.0); MCHC 31.5 g/dL (32.0-37.0); MCV 95.6 fL (80.0-97.0); Mean Platelet Volume 11.1 fL (9.5-12.2); Monocytes # (A) 1.18 X 10*3/uL (0.20-1.00); Neutrophils # (A) 12.35 X 10*3/uL (1.80-7.70); Neutrophils % (A) 84.1 %; Platelet Count 361 X 10*3/uL (140-440); RBC 3.65 X 10*6/uL (4.10-5.20); RDW 15.3 % (11.5-14.5); WBC 14.69 X 10*3/uL (4.50-10.00)
--- NOTE | 2021-09-21 11:30 | P.PN ---
Progress Note - Text Progress Note Date: 09/21/21 Patient doing well. Pain earlier when OnQ was turned off, but significant relief with OnQ running @ 8 ml/hr. Participating with PT. Denies weakness. Right adductor catheter site c/d POD#1 s/p R TKA - doing well
--- NOTE | 2021-09-21 11:51 | P.DS ---
Providers Expected date of discharge: 09/21/21 Attending physician: Vargas Padilla Consults: 09/20/21 17:23 Consult Physician Routine Consulting Provider: Azra Sharpe Consult Reason/Comments: Post-operative medical management Do you want consulting provider notified?: Yes Primary care physician: Jeffrey Appiah - Discharge Diagnosis(es) (1) Osteoarthritis of right knee Current Visit: Yes Status: Acute (2) Status post total right knee replacement Current Visit: Yes Status: Acute Hospital Course: This is a 56-year-old female who was last seen with complaint of continued right knee pain. The patient has a known history of degenerative arthritis of the right knee and presents to discuss surgical options. After discussion and consideration the patient elects to proceed with total right knee arthroplasty. The patient is seen preoperatively by her primary care physician and cleared for surgery. The patient is admitted to [facility] for total right knee arthroplasty. The procedures performed without complication or sequelae. Patient is doing well postoperatively. Her Optifoam dressing was saturated area of the dressing was changed today. There is no active drainage at this time. Vital signs are stable at discharge. Labs are stable at discharge. the patient is ambulating well with walker with minimal assistance. The patient is discharged to home on postop day #1 pending medical clearance. Please see orders and refer to the med rec for accurate list of medications. Patient Condition at Discharge: Good Plan - Discharge Summary Discharge Rx Participant: Yes New Discharge Prescriptions: New Aspirin 325 mg PO BID #60 tab Sennosides-Docusate Sodium [Senokot-S] 1 tab PO BID PRN #60 tablet PRN Reason: Constipation Ondansetron [Zofran] 4 mg PO Q6HR PRN #30 tab PRN Reason: Nausea traMADol HCL [Ultram] 50 mg PO Q6HR PRN #28 tab PRN Reason: Pain Continue DULoxetine HCL [Cymbalta] 60 mg PO HS Acetaminophen Tab [Tylenol] 650 mg PO Q4H PRN PRN Reason: Pain Cholecalciferol [Vitamin D3 (25 Mcg = 1000 Iu)] 2,000 unit PO DAILY@1200 Levothyroxine Sodium [Synthroid] 112 mcg PO DAILY [place]-3 Fatty Acids/Fish Oil [Fish Oil 1,000 mg Softgel] 1 each PO DAILY Lansoprazole [Prevacid] 30 mg PO BID Ibuprofen [Motrin] 800 mg PO Q8H Cyclobenzaprine [Flexeril] 10 mg PO HS traMADol HCL [Ultram] 50 mg PO Q6HR PRN PRN Reason: Pain L.acidoph,Paracasei, B.lactis [Probiotic] 1 each PO DAILY Vitamin B Complex 1 each PO DAILY Mv-Min/Vit C/Glut/Lysine/Hb124 [Immune Support Chewable Tablet] 1 each PO DAILY Gabapentin [Neurontin] 300 mg PO TID Pulsate Plus 2 tbsp PO DAILY Naltrexone Compound 3 mg PO HS Discontinued Losartan/Hydrochlorothiazide [Losartan-Hctz 100-25 mg Tab] 1 tab PO HS Discharge Medication List Acetaminophen Tab [Tylenol] 650 mg PO Q4H PRN 07/21/14 [History] Cholecalciferol [Vitamin D3 (25 Mcg = 1000 Iu)] 2,000 unit PO DAILY@1200 07/21/14 [History] DULoxetine HCL [Cymbalta] 60 mg PO HS 07/21/14 [History] Levothyroxine Sodium [Synthroid] 112 mcg PO DAILY 07/21/14 [History] Cyclobenzaprine [Flexeril] 10 mg PO HS 05/31/21 [History] Gabapentin [Neurontin] 300 mg PO TID 05/31/21 [History] Ibuprofen [Motrin] 800 mg PO Q8H 05/31/21 [History] L.acidoph,Paracasei, B.lactis [Probiotic] 1 each PO DAILY 05/31/21 [History] Lansoprazole [Prevacid] 30 mg PO BID 05/31/21 [History] Mv-Min/Vit C/Glut/Lysine/Hb124 [Immune Support Chewable Tablet] 1 each PO DAILY 05/31/21 [History] [place]-3 Fatty Acids/Fish Oil [Fish Oil 1,000 mg Softgel] 1 each PO DAILY 05/31/21 [History] Pulsate Plus 2 tbsp PO DAILY 05/31/21 [History] Vitamin B Complex 1 each PO DAILY 05/31/21 [History] Naltrexone Compound 3 mg PO HS 09/16/21 [History] traMADol HCL [Ultram] 50 mg PO Q6HR PRN 09/16/21 [History] Aspirin 325 mg PO BID #60 tab 09/20/21 [Rx] Ondansetron [Zofran] 4 mg PO Q6HR PRN #30 tab 09/20/21 [Rx] Sennosides-Docusate Sodium [Senokot-S] 1 tab PO BID PRN #60 tablet 09/20/21 [Rx] traMADol HCL [Ultram] 50 mg PO Q6HR PRN #28 tab 09/21/21 [Rx] Follow up Appointment(s)/Referral(s): [facility],Equipment [NON-STAFF] - (*Please call [facility] once home to arrange delivery of the Continous Passive Motion (CPM) machine. ) Jeffrey Appiah MD [Primary Care Provider] - 1 Week [facility], [NON-STAFF] - ([facility] will call you to schedule your home physical therapy visits. ) Vargas Padilla DO [Doctor of Osteopathic Medicine] - 10/03/21 2:00 pm (Patient may follow-up with Lisa Bhakta PA-C or Dr. Vargas Padilla at [facility] in 2-3 weeks following discharge. ) Activity/Diet/Wound Care/Special Instructions: 1. Patient to continue to be weight-bear as tolerated on the right lower extremity with the assistance of a walker 2. Patient may apply ice over the right knee for comfort support as needed 3. Patient is encouraged to elevate the right knee for comfort support as needed 4. Continue anticoagulation with aspirin 325 mg twice a day until completion of prescription 5. Take medications as prescribed 6. Patient may shower with dressing intact over the knee 7. Keep dressing intact over the right knee for 7 days 8. Patient may remove dressing after 1 week and may shower without a dressing at that time if incision site remains clean and dry 9. Any questions or concerns contact [facility] at [phone] Hold blood pressure medication for 2 days Check blood pressure daily If blood pressure becomes elevated with systolic in the 130-140's can resume Discharge Disposition: HOME SELF-CARE
[2021-09-21] MEDS ORDERED: CHOLECALCIFEROL 25 MCG (1000 IU) TABLET PO SCH (12:00)
--- NOTE | 2021-09-21 13:25 | P.CONS ---
History of Present Illness - Reason for Consult Consult date: 09/21/21 medical management - History of Present Illness This is a pleasant 48-year-old female in the for an scheduled total right knee replacement with Dr. Padilla. Patient had her left knee completed in May of this year. Patient is a past medical history significant for hypothyroid, fibromyalgia, osteoarthritis, IBS diarrhea type, sleep apnea does not wear a CPAP, GERD, hypertension she did have Covid pneumonia and December of this year and since then has developed hypertension. Patient does state that every time she is a CPAP machine she gets bronchitis or pneumonia, so she does not wear one sits upright in her chair while sleeping. Patient follows with Dr. Appiah in the office. She states that recently she had a BNP level checked which was within the normal range because she is having increased lower extremi ty edema. She said that for 10 days she was instructed to take a diuretic and she lost about 10 pounds. She's never had an echocardiogram. There is no family history of heart attack or stroke. Patient's postop day #1 total right knee replacement. Patient is having adequate pain control with the painball as well as Ultram in the hospital. Currently her pain is rated a 4 out of 10 to her right knee. She denies any numbness or tingling to bilateral lower extremities. She denies any cough or shortness of breath, chest pain, palpitations. She denies any nausea vomiting diarrhea or abdominal pain. Patient has not had a bowel movement today she did have one yesterday and is passing gas. She is urinating without difficulty. Labs today show white count 14.6, hemoglobin 11, COVID PCR is not detected. Metabolic panel still pending. We will hold her hydrochlorothiazide/losartan combination as her blood pressure is lower side at 105/72 instructed patient to hold this for 2 days and to recheck her blood pressure home before resuming. We will clear patient medically for discharge and to follow-up with her PCP the office. REVIEW OF SYSTEMS: CONSTITUTIONAL: No fever, no malaise, no fatigue. HEENT: No recent visual problems or hearing problems. Denied any sore throat. CARDIOVASCULAR: No chest pain, orthopnea, PND, no palpitations, no syncope. PULMONARY: No shortness of breath, no cough, no hemoptysis. GASTROINTESTINAL: No diarrhea, no nausea, no vomiting, no abdominal pain. NEUROLOGICAL: No headaches, no weakness, no numbness. HEMATOLOGICAL: Denies any bleeding or petechiae. GENITOURINARY: Denies any burning micturition, frequency, or urgency. MUSCULOSKELETAL/RHEUMATOLOGICAL: Reports 4/10 pain to her right knee, denies numbness or tingling ENDOCRINE: Denies any polyuria or polydipsia. The rest of the 14-point review of systems is negative. PHYSICAL EXAMINATION: GENERAL: The patient is alert and oriented x3, not in any acute distress. Well developed, well nourished. HEENT: Pupils are round and equally reacting to light. EOMI. No scleral icterus. No conjunctival pallor. Normocephalic, atraumatic. No pharyngeal erythema. No thyromegaly. CARDIOVASCULAR: S1 and S2 present. No murmurs, rubs, or gallops. PULMONARY: Chest is clear to auscultation, no wheezing or crackles. ABDOMEN: Soft, nontender, nondistended, normoactive bowel sounds. No palpable organomegaly. MUSCULOSKELETAL: No joint swelling or deformity. EXTREMITIES: No cyanosis, clubbing, mild nonpitting LE lisa, +2 bilteral dorsalis pedis pulse NEUROLOGICAL: Gross neurological examination did not reveal any focal deficits. SKIN: No rashes. Surgical dressing to the right knee. Assessment and plan Assessment Postop day #1 total knee replacement Leukocytosis, reactive Anemia Hypertension Sleep apnea does not wear a CPAP Hypothyroid GERD IBSD Osteoarthritis Obesity DVT Prophlyaxis: Aspirin GI Prophylaxis: Lansoprazole Plan Hold blood pressure medication postoperatively Monitor electrolytes PT/OT Discharge when cleared by surgery Past Medical History Past Medical History: Fibromyalgia, GERD/Reflux, Hypertension, Osteoarthritis (OA), Sleep Apnea/CPAP/BIPAP, Thyroid Disorder Additional Past Medical History / Comment(s): HAD COVID IN DECEMBER 2020. CANNOT USE CPAP. IBS-D History of Any Multi-Drug Resistant Organisms: None Reported Past Surgical History: Adenoidectomy, Cholecystectomy, Hysterectomy, Joint Replacement, Tonsillectomy Additional Past Surgical History / Comment(s): LT TKA 06/06/21 Past Anesthesia/Blood Transfusion Reactions: No Reported Reaction Past Psychological History: No Psychological Hx Reported Smoking Status: Never smoker Past Alcohol Use History: None Reported Past Drug Use History: None Reported - Past Family History Mother Family Medical History: Cancer Additional Family Medical History / Comment(s): Breast lymph node cancer Medications and Allergies Home Medications Medication Instructions Recorded Confirmed Type Acetaminophen Tab [Tylenol] 650 mg PO Q4H PRN 07/21/14 09/20/21 History Cholecalciferol [Vitamin D3 (25 2,000 unit PO DAILY@1200 07/21/14 09/16/21 History Mcg = 1000 Iu)] DULoxetine HCL [Cymbalta] 60 mg PO HS 07/21/14 09/20/21 History Levothyroxine Sodium [Synthroid] 112 mcg PO DAILY 07/21/14 09/16/21 History Cyclobenzaprine [Flexeril] 10 mg PO HS 05/31/21 09/20/21 History Gabapentin [Neurontin] 300 mg PO TID 05/31/21 09/16/21 History Ibuprofen [Motrin] 800 mg PO Q8H 05/31/21 09/16/21 History L.acidoph,Paracasei, B.lactis 1 each PO DAILY 05/31/21 09/16/21 History [Probiotic] Lansoprazole [Prevacid] 30 mg PO BID 05/31/21 09/16/21 History Mv-Min/Vit C/Glut/Lysine/Hb124 1 each PO DAILY 05/31/21 09/16/21 History [Immune Support Chewable Tablet] [place]-3 Fatty Acids/Fish Oil [Fish 1 each PO DAILY 05/31/21 09/16/21 History Oil 1,000 mg Softgel] Pulsate Plus 2 tbsp PO DAILY 05/31/21 09/16/21 History Vitamin B Complex 1 each PO DAILY 05/31/21 09/16/21 History Naltrexone Compound 3 mg PO HS 09/16/21 History traMADol HCL [Ultram] 50 mg PO Q6HR PRN 09/16/21 09/20/21 History Aspirin 325 mg PO BID #60 tab 09/20/21 Rx Ondansetron [Zofran] 4 mg PO Q6HR PRN #30 tab 09/20/21 Rx Sennosides-Docusate Sodium 1 tab PO BID PRN #60 tablet 09/20/21 Rx [Senokot-S] traMADol HCL [Ultram] 50 mg PO Q6HR PRN #28 tab 09/21/21 Rx Allergies Allergy/AdvReac Type Severity Reaction Status Date / Time codeine Allergy Nausea & Verified 09/20/21 12:38 Vomiting hydrocodone [From [place]] Allergy Nausea & Verified 09/20/21 12:38 Vomiting oxycodone HCl [From Percocet] Allergy Nausea & Verified 09/20/21 12:38 Vomiting propoxyphene napsylate Allergy Nausea & Verified 09/20/21 12:38 [From Darvocet-N] Vomiting Sulfa (Sulfonamide Allergy Anaphylaxis Verified 09/20/21 12:38 Antibiotics) Physical Exam Vitals: Vital Signs Temp Pulse Resp BP BP Pulse Ox 09/21/21 02:14 98.7 F 95 19 105/72 92 L 09/21/21 01:00 87 124/82 09/21/21 00:23 83 127/79 09/20/21 20:05 70 144/83 09/20/21 19:50 88 134/84 09/20/21 19:45 94 L 09/20/21 19:35 83 148/80 09/20/21 19:20 66 137/83 09/20/21 19:05 97.5 F L 65 14 149/79 98 09/20/21 18:15 64 14 147/77 97 09/20/21 18:00 64 16 136/71 91 L 09/20/21 17:45 60 14 138/70 98 09/20/21 17:30 59 L 16 139/74 99 09/20/21 17:15 72 14 141/76 95 09/20/21 17:12 97.8 F 77 16 141/75 95 09/20/21 12:40 98.6 F 102 H 16 127/68 94 L Intake and Output 09/20/21 09/21/21 09/21/21 22:59 06:59 14:59 Intake Total 1000 1100 Output Total 25 Balance 975 1100 Intake: IV 1000 Intake, IV Titration 1100 Amount Sodium Chloride 0.9% 1, 1000 000 ml @ 100 mls/hr IV . Q10H [facility] Rx#:[id number] ceFAZolin 3 gm In Sodium 100 Chloride 0.9% 100 ml @ 200 mls/hr IVPB Q8HR [facility] Rx#:[id number] Output: Estimated Blood Loss 25 Other: Voiding Method Toilet # Voids 2 Weight 133.1 kg Results CBC & Chem 7: 09/21/21 06:04 Assessment and Plan Time with Patient: Greater than 30
[2021-09-21 15:41] LABS: African American GFR (CKD) 83.1 (60.0-200.0); Anion Gap 12.6 mmol/L (10.00-18.00); BUN/Creat Ratio 20.07 Ratio (12.00-20.00); Blood Urea Nitrogen 17.8 mg/dL (9.0-27.0); Calcium 9.3 mg/dL (8.7-10.3); Carbon Dioxide 26.5 mmol/L (20.0-27.5); Non-African American GFR(CKD) 71.7 (60.0-200.0); Potassium 5.2 mmol/L (3.5-5.5)
== END 2021-09-21 14:50 | disposition home or self-care (01) ==
LOC: OR 12:22 → 4SSUR 17:03 → OR 09-21 14:50
PROVIDERS: ATTEND Orthopaedic Surgery
DX: M17.11 Unilateral primary osteoarthritis, right knee (principal); M79.7 Fibromyalgia; E03.9 Hypothyroidism, unspecified; R26.81 Unsteadiness on feet; I10 Essential (primary) hypertension; K30 Functional dyspepsia; K21.9 Gastro-esophageal reflux disease without esophagitis; G47.33 Obstructive sleep apnea (adult) (pediatric); E66.01 Morbid (severe) obesity due to excess calories; Z68.42 Body mass index [BMI] 45.0-49.9, adult; Z98.891 History of uterine scar from previous surgery; Z90.49 Acquired absence of other specified parts of digestive tract; Z90.710 Acquired absence of both cervix and uterus; Z98.890 Other specified postprocedural states; Z83.3 Family history of diabetes mellitus; Z82.49 Family history of ischemic heart disease and other diseases of the circulatory system; Z80.9 Family history of malignant neoplasm, unspecified; Z86.19 Personal history of other infectious and parasitic diseases; Z86.69 Personal history of other diseases of the nervous system and sense organs; Z87.01 Personal history of pneumonia (recurrent); Z79.82 Long term (current) use of aspirin; Z79.1 Long term (current) use of non-steroidal anti-inflammatories (NSAID); Z79.890 Hormone replacement therapy; Z79.899 Other long term (current) drug therapy; Z88.5 Allergy status to narcotic agent; Z88.0 Allergy status to penicillin; Z88.2 Allergy status to sulfonamides
CPT/HCPCS: 97161; 64999; 64448; 76942; 80048; 85025; 87635; 73560; 27447; C1713; C1776; J2250; J2710; J0690 ×2; J2405; J2001; J3010; J1170 ×2; J2795 ×2; J0330; J2704; 88300

== ENCOUNTER → 2022-04-28 | Outpatient (CLI) | payer MEDICARE ==
[2022-04-28 14:27] LABS: Basophils # (A) 0.05 X 10*3/uL (0.00-0.10); Basophils % (A) 0.8 %; Eosinophils # (A) 0.24 X 10*3/uL (0.04-0.35); Eosinophils % (A) 3.6 %; HCT 38.1 % (37.2-46.3); HGB 11.5 g/dL (12.0-15.0); Immature Grans, Automated 0.3 %; Lymphocytes # (A) 1.84 X 10*3/uL (0.90-5.00); Lymphocytes % (A) 27.7 %; MCH 29.1 pg (27.0-32.0); MCHC 30.2 g/dL (32.0-37.0); MCV 96.5 fL (80.0-97.0); Mean Platelet Volume 11.3 fL (9.5-12.2); NRBC Per 100 WBC 0 /100 WBCS (0.0-0.0); Neutrophils % (A) 58.6 %; Platelet Count 293 X 10*3/uL (140-440); RBC 3.95 X 10*6/uL (4.10-5.20); RDW 15.7 % (11.5-14.5); WBC 6.65 X 10*3/uL (4.50-10.00)
[2022-04-28 15:15] LABS: % Iron Saturation 19.47 (12.00-45.00); ALT 37 U/L (8-44); AST 27 U/L (13-35); African American GFR (CKD) 68.6 (60.0-200.0); Albumin 4.2 g/dL (3.8-4.9); Albumin/Globulin Ratio 2.11 (1.60-3.17); Alkaline Phosphatase 99 U/L (41-126); BUN/Creat Ratio 19.71 Ratio (12.00-20.00); Blood Urea Nitrogen 20.5 mg/dL (9.0-27.0); Calcium 9.3 mg/dL (8.7-10.3); Carbon Dioxide 27.8 mmol/L (20.0-27.5); Chloride 105 mmol/L (96-109); Chol/HDL Ratio 3.37 Ratio; Glucose 115 mg/dL (70-110); Iron 77 ug/dL (50-170); LDL Cholesterol,Calculated 85.5 mg/dL (0.0-131.0); Non-African American GFR(CKD) 59.2 (60.0-200.0); Potassium 4.8 mmol/L (3.5-5.5); Sodium 143 mmol/L (135-145); Total Iron Binding Capacity 398 ug/dL (228-460); Total Protein 6.2 g/dL (6.2-8.2)
== END | disposition home or self-care (01) ==
LOC: LABWHC1 07:46
PROVIDERS: ATTEND Family Medicine
DX: Z13.220 Encounter for screening for lipoid disorders (principal); D64.9 Anemia, unspecified; E03.9 Hypothyroidism, unspecified; E55.9 Vitamin D deficiency, unspecified
CPT/HCPCS: 36415; 80053; 80061; 82306; 82607; 82728; 82746; 83540; 83550; 84439; 84443; 85025

== ENCOUNTER → 2022-06-02 | Outpatient (CLI) | payer MEDICARE ==
--- NOTE | 2022-06-05 08:15 | MM ---
Reason for Exam: Screening (asymptomatic). Last mammogram was performed 1 year(s) and 1 month(s) ago. Patient History: Menarche at age 11. First Full-Term at age 19. Left ovary removed at age 35. Right ovary removed at age 35. Hysterectomy at age 35. Postmenopausal. Mother had breast cancer, age 36. Risk Values: Rox 5 year model risk: 2.6%. NCI Lifetime model risk: 14.2%. Prior Study Comparison: 09/25/2017 Left Diagnostic Mammogram, [facility]. 03/27/2019 Bilateral Screening Mammogram, [facility]. 05/23/2021 Bilateral Screening Mammogram, [facility]. Tissue Density: There are scattered fibroglandular densities. Findings: Analyzed By CAD. There is no suspicious group of microcalcifications or new suspicious mass in either breast. No significant change from prior exams. Overall Assessment: Benign, BI-RAD 2 Management: Screening Mammogram of both breasts in 1 year. A clinical breast exam by your physician is recommended on an annual basis and results should be correlated with mammographic findings. Electronically signed and approved by: Kendell Sierra D.O.
== END | disposition home or self-care (01) ==
LOC: RADMAMWWP 13:38
PROVIDERS: ATTEND Family Medicine
DX: Z12.31 Encounter for screening mammogram for malignant neoplasm of breast (principal); Z78.0 Asymptomatic menopausal state; Z80.3 Family history of malignant neoplasm of breast
CPT/HCPCS: 77063; 77067

== ENCOUNTER → 2022-06-09 | Outpatient (CLI) | payer MEDICARE ==
[2022-06-09 13:04] LABS: Basophils # (A) 0.1 k/uL (0-0.2); Basophils % (A) 1 %; Eosinophils # (A) 0.3 k/uL (0-0.7); Eosinophils % (A) 6 %; HCT 37.8 % (34.0-46.0); HGB 11.8 gm/dL (11.4-16.0); Hypochromasia Slight; Lymphocytes # (A) 1.5 k/uL (1.0-4.8); Lymphocytes % (A) 24 %; MCH 29.6 pg (25.0-35.0); MCHC 31.3 g/dL (31.0-37.0); MCV 94.6 fL (80.0-100.0); Mean Platelet Volume 8.8; Monocytes # (A) 0.4 k/uL (0-1.0); Monocytes % (A) 6 %; Neutrophils # (A) 3.9 k/uL (1.3-7.7); Neutrophils % (A) 63 %; Platelet Count 262 k/uL (150-450); RDW 15.1 % (11.5-15.5); WBC 6.2 k/uL (3.8-10.6)
[2022-06-09 13:18] LABS: ALT 35 U/L (4-34); AST 29 U/L (14-36); African American GFR (CKD) 70 (>60 ml/min/1.73 sqM); Albumin 3.9 g/dL (3.5-5.0); Albumin/Globulin Ratio 1.6; Alkaline Phosphatase 95 U/L (38-126); Anion Gap 6 mmol/L; Blood Urea Nitrogen 22 mg/dL (7-17); Calcium 9.1 mg/dL (8.4-10.2); Carbon Dioxide 31 mmol/L (22-30); Chloride 101 mmol/L (98-107); Globulin 2.4 g/dL; Glucose 116 mg/dL (74-99); Non-African American GFR(CKD) 61 (>60 ml/min/1.73 sqM); Potassium 4.3 mmol/L (3.5-5.1); Sodium 138 mmol/L (137-145); Total Bilirubin 0.4 mg/dL (0.2-1.3); Total Protein 6.3 g/dL (6.3-8.2)
== END | disposition home or self-care (01) ==
LOC: LABWHC1 12:22
PROVIDERS: ATTEND Family Medicine
DX: R60.0 Localized edema (principal); R06.00 Dyspnea, unspecified
CPT/HCPCS: 36415; 80053; 83880; 84484; 85025

== ENCOUNTER → 2022-07-31 | Outpatient (CLI) | payer MEDICARE ==
--- NOTE | 2022-07-31 10:38 | CA ---
Transthoracic Echo Report Name: Balaji Morris Age: 56 Gender: F : 1965 Exam Date: 07/31/2022 08:44 Exam Location: [facility] Ht (in): 66 Wt (lb): 270 Ordering Physician: Jeffrey Appiah MD Attending/Referring Phys: JCBijal Pat Negative Assembler Jacinta Browne, SACHA Procedure CPT: Indications: R06.00 Cardiac Hx: Technical Quality: Fair Contrast 1: Total Dose (mL): Contrast 2: Total Dose (mL): MEASUREMENTS (Male / Female) Normal Values 2D ECHO LV Diastolic Diameter PLAX 5.4 cm 4.2 - 5.9 / 3.9 - 5.3 cm LV Systolic Diameter PLAX 2.9 cm IVS Diastolic Thickness 1.3 cm 0.6 - 1.0 / 0.6 - 0.9 cm LVPW Diastolic Thickness 1.3 cm 0.6 - 1.0 / 0.6 - 0.9 cm LV Relative Wall Thickness 0.5 RV Internal Dim ED PLAX 3.9 cm LA Volume 88.1 cm??? 18 - 58 / 22 - 52 cm??? M-MODE Aortic Root Diameter MM 3.0 cm LA Systolic Diameter MM 5.5 cm LA Ao Ratio MM 1.8 AV Cusp Separation MM 1.8 cm DOPPLER MV Area PHT 1.9 cm??? Mitral E Point Velocity 36.1 cm/s Mitral A Point Velocity 41.7 cm/s Mitral E to A Ratio 0.9 MV Deceleration Time 408.0 ms MV E' Velocity 3.8 cm/s Mitral E to MV E' Ratio 9.6 TR Peak Velocity 250.9 cm/s TR Peak Gradient 25.2 mmHg Right Ventricular Systolic Press 29.7 mmHg FINDINGS Left Ventricle Mildly increased left ventricular wall thickness. Normal left ventricular systolic function with no obvious regional wall motion abnormalities. Left ventricular ejection fraction is estimated at 55-60%. Right Ventricle Mild right ventricular dilatation. Right ventricular systolic pressure within normal limits. Right Atrium Normal right atrial size. Left Atrium Moderate left atrial dilatation. No evidence for an atrial septal defect. Mitral Valve Structurally normal mitral valve. No mitral stenosis. Mild mitral regurgitation. Aortic Valve Trileaflet aortic valve. No aortic valve stenosis or regurgitation. Tricuspid Valve Structurally normal tricuspid valve. Mild tricuspid regurgitation. Pulmonic Valve Trace pulmonic regurgitation. Pericardium No pericardial effusion. Echo free space anterior to the right ventricle likely represents a fat pad. Aorta Normal size aortic root and proximal ascending aorta. CONCLUSIONS 1. Normal left ventricle size and systolic function 2. Mild mitral and tricuspid regurgitation 3. No pericardial effusion Previewed by: Dr. Brandon Kent MD (Electronically Signed) Final Date: 31 July 2022 10:38
== END | disposition home or self-care (01) ==
LOC: RADECHMAIN 08:08
PROVIDERS: ATTEND Family Medicine
DX: I08.1 Rheumatic disorders of both mitral and tricuspid valves (principal)
CPT/HCPCS: 93306

== ENCOUNTER → 2023-06-11 | Outpatient (CLI) | payer MEDICARE ==
--- NOTE | 2023-06-11 10:38 | MM ---
Reason for Exam: Screening (asymptomatic). Last screening mammogram was performed 12 month(s) ago. Patient History: Menarche at age 11. First Full-Term at age 19. Left ovary removed at age 35. Right ovary removed at age 35. Hysterectomy at age 35. Postmenopausal. Patient has history of breast feeding. Mother had breast cancer, age 36. Risk Values: Rox 5 year model risk: 2.7%. NCI Lifetime model risk: 13.9%. Prior Study Comparison: 03/27/2019 Bilateral Screening Mammogram, [facility]. 05/23/2021 Bilateral Screening Mammogram, [facility]. 06/02/2022 Bilateral MG 3D screening mammo w/cad, [facility]. Tissue Density: There are scattered fibroglandular densities. Findings: Analyzed By CAD. There is no suspicious group of microcalcifications or new suspicious mass in either breast. Overall Assessment: Negative, BI-RAD 1 Management: Screening Mammogram of both breasts in [address] [facility] will attempt to contact patient to return for supplemental views and ultrasound if indicated. Patient should continue monthly self-breast exams. A clinical breast exam by your physician is recommended on an annual basis. This exam should not preclude additional follow-up of suspicious palpable abnormalities. Note on Rox scores and lifetime risk: 1. A Rox score greater than 3% is considered moderate risk. If this is the case, consider specialist referral to assess eligibility for a risk reducing agent. 2. If overall lifetime risk for the development of breast cancer is 20% or higher, the patient may qualify for future screening with alternating mammogram and breast MRI. Electronically signed and approved by: Carlo Pool DO
--- NOTE | 2023-06-11 11:29 | BD ---
EXAMINATION TYPE: Axial Bone Density DATE OF EXAM: 06/11/2023 CLINICAL HISTORY: 57 years old Female. ICD-10 CODE: Z13.820 SCREENING FOR OSTEOPOROSIS Height: 65.5 Weight: 289 FRAX RISK QUESTIONS: Family History (Parent hip fracture): yes, mother History of Fracture in Adulthood: yes Secondary Osteoporosis: yes 3. Menopause before 45: yes RISK FACTORS HISTORY OF: broken toes and foot as an adult Family History of Osteoporosis: yes...x2 Postmenopausal woman: yes, at 35 yrs Hyperparathyroidism: no Adrenal Insufficiency: no MEDICATIONS: Thyroid Medications: yes, synthroid for about 20+ yrs Additional Medications: vit d, pain meds, muscle relaxers, bp meds, Cymbalta, reflux meds, calcium Additional History: chronic bone pain, reflux, hypertension, EXAM MEASUREMENTS: Bone mineral densitometry was performed using the RadMit System. Bone mineral density as measured about the Lumbar spine is: ----- L1-L4(G/cm2): 1.123 T Score Values are as follows: ----- L1: -0.8 ----- L2: 0.1 ----- L3: -0.5 ----- L4: -0.7 ----- L1-L4: -0.5 Z Score Values are as follows: ----- L1: -0.8 ----- L2: 0.1 ----- L3: -0.1 ----- L4: -0.7 ----- L1-L4: -0.5 Bone mineral density has: Increased 8.8% since study of: 01.07.2020 Bone mineral density about the R hip (g/cm2): 1.009 Bone mineral density about the L hip (g/cm2): 0.949 T Score values are as follows: -----R Neck: -0.8 -----L Neck: -1.2 -----R Total: 0.0 -----L Total: -0.5 Z Score values are as follows: -----R Neck: -0.4 -----L Neck: -0.8 -----R Total: 0.1 -----L Total: -0.4 Bone mineral density has: Increased 1.6% since study of: 01.07.2020 FRAX%s: The graph provided illustrates a 12.7% chance for a major osteoporotic fx and a 0.7% chance f or the hips probability for fx in 10 years time. IMPRESSION: Osteopenia (T Score between -2.5 and -1). There is slightly increased risk of fracture and the patient may be considered for treatment. Re-Screen 2-5 years. NOTE: T-SCORE=SD OF THE YOUNG ADULT MEAN.
== END | disposition home or self-care (01) ==
LOC: RADMAMWWP 09:40
PROVIDERS: ATTEND Family Medicine
DX: Z12.31 Encounter for screening mammogram for malignant neoplasm of breast (principal); Z13.820 Encounter for screening for osteoporosis; M85.852 Other specified disorders of bone density and structure, left thigh; Z78.0 Asymptomatic menopausal state; Z80.3 Family history of malignant neoplasm of breast
CPT/HCPCS: 77063; 77067; 77080